=== PATIENT | female | born 1980 | race Caucasian/White ===

== ENCOUNTER → 2017-09-05 | Outpatient (CLI) | payer OTHER ==
[2014-09-07 16:55] VITALS: BP 124/70
--- NOTE | 2017-09-07 09:06 | RAD ---
DATE: 09/05/2017 EXAM: DIGITAL SCREEN BILAT W/CAD HISTORY: Routine screening COMPARISON: Baseline study This study was interpreted with the benefit of Computerized Aided Detection (CAD). The breast parenchyma is heterogeneously dense, which could reduce sensitivity of mammography. Breast parenchyma level C. FINDINGS: There is a 9 mm smooth nodule projected over the lower axillary region of the right breast on the oblique view. This is not visible on the cc view. This is probably an intramammary lymph node. Larger fat-containing lymph nodes are evident high are in the right axillary region. No suspicious breast density is seen. No microcalcifications are evident. IMPRESSION: Small nodule in the axillary tail region of the right breast seen only one view. Diagnostic mammography to include an exaggerated CC view and possibly ultrasound is suggested for further evaluation. BI-RADS CATEGORY: 0 INCOMPLETE: NEEDS ADDITIONAL IMAGING EVALUATION AND/OR PRIOR MAMMOGRAMS FOR COMPARISON. RECOMMENDED FOLLOW-UP: ADD ADDITIONAL IMAGING PQRS compliance statement: Patient information was entered into a reminder system with a target due date for the next mammogram. Mammography is a sensitive method for finding small breast cancers, but it does not detect them all and is not a substitute for careful clinical examination. A negative mammogram does not negate a clinically suspicious finding and should not result in delay in biopsying a clinically suspicious abnormality. "Our facility is accredited by the [employer] Mammography Program."
== END | disposition home or self-care (01) ==
LOC: MAMMO 09:21
PROVIDERS: ATTEND Family Medicine
DX: Z12.31 Encounter for screening mammogram for malignant neoplasm of breast (principal)
CPT/HCPCS: G0202; 77067

== ENCOUNTER → 2017-09-18 | Outpatient (CLI) | payer OTHER ==
[2014-09-07 16:55] VITALS: BP 124/70
--- NOTE | 2017-09-18 13:35 | RAD ---
DATE: September 18, 2017 EXAM: DIGITAL DIAGNOSTIC RT, BREAST RIGHT HISTORY: Abnormal baseline screening exam in a 37-year-old with strong family history of breast cancer COMPARISON: 09-20 TECHNIQUE: Patient returned for exaggerated right CC and views, right ML view, and repeat right MLO view. Limited right breast ultrasound then was performed. This study was interpreted with the benefit of Computerized Aided Detection (CAD). FINDINGS: The breast parenchyma is heterogeneously dense, category C, which may obscure small masses. The area of concern in the deep upper right breast on MLO view has no correlate on the exaggerated CC views or ML view. It does persist on the repeat right MLO view. Ultrasound was then performed. At the 10:00 position 9 cm from the nipple there is a benign-appearing fatty lymph node measuring 13 x 6 mm, corresponds in size and location with the area of concern on screening mammogram. Additional benign appearing axillary lymph nodes are also imaged by ultrasound. They have similar ultrasound characteristics. Lymph node has a benign appearance. Given strong family history, starting annual screening at an earlier age was discussed with the patient in person. IMPRESSION: Benign intraparenchymal lymph node. BI-RADS CATEGORY: 2 BENIGN FINDING RECOMMENDED FOLLOW-UP: 12M 12 MONTH FOLLOW-UP PQRS compliance statement: Patient information was entered into a reminder system with a target due date for the next mammogram. Mammography is a sensitive method for finding small breast cancers, but it does not detect them all and is not a substitute for careful clinical examination. A negative mammogram does not negate a clinically suspicious finding and should not result in delay in biopsying a clinically suspicious abnormality. "Our facility is accredited by the [employer] Mammography Program."
== END | disposition home or self-care (01) ==
LOC: MAMMO 12:28
PROVIDERS: ATTEND Family Medicine
DX: R92.8 Other abnormal and inconclusive findings on diagnostic imaging of breast (principal); Z80.3 Family history of malignant neoplasm of breast
CPT/HCPCS: 76641; G0206; 77065